=== PATIENT | female | born 1990 ===

== ENCOUNTER 2020-01-21 13:09 | Inpatient (IN) ==
[2020-01-21] MEDS ORDERED: IOPAMIDOL 100 ML BOTTLE IV ONE (13:10)
[2020-01-21] MEDS ORDERED: KETOROLAC 30 MG/ML VIAL IV ONE (13:28)
[2020-01-21] MEDS ORDERED: 0.9 % SODIUM CHLORIDE 2,000 ML IV ONE (13:28)
[2020-01-21] MEDS ORDERED: ONDANSETRON 4 MG/2 ML VIAL IV ONE (13:28)
[2020-01-21 13:47] LABS: POC Blood Urea Nitrogen 13 mg/dl (6-20); POC CO2 24 mmol/L (22-30); POC Calcium, Ionized 1.19 mmol/L (1.16-1.32); POC Chloride 102 mmol/L (96-108); POC Creatinine 0.6 mg/dl (0.6-1.1); POC Glucose, Random 167 mg/dL (70-105); POC Potassium 3.4 mmol/L (3.3-5.1); POC Sodium 135 mmol/L (133-145)
[2020-01-21] MEDS: HYDROmorphone 2 MG/ML VIAL IV PRN ×3 (13:55→17:07)
[2020-01-21 14:27] LABS: Basophils # (Auto) 0.06 K/mcL (0.00-0.30); Basophils % (Auto) 0.2 % (0.0-2.0); Eosinophils # (Auto) 0.05 K/mcL (0.00-0.70); Eosinophils % (Auto) 0.2 % (0.0-7.0); Granulocytes % (Auto) 90.3 % (38.0-78.0); Hematocrit 33.8 % (34.1-44.9); Hemoglobin 11.6 g/dL (11.2-15.7); Lymphocytes # (Auto) 1.45 K/mcL (1.50-4.80); Mean Cell Volume 86.2 fL (80.0-100.0); Mean Corpuscular HGB Conc 34.3 g/dL (31.0-36.0); Mean Platelet Volume 10.5 fL (7.4-10.4); Monocytes # (Auto) 0.79 K/mcL (0.10-0.90); Monocytes % (Auto) 3.3 % (1.0-12.0); Platelet Count 358 K/mcL (140-440); RBC 3.92 M/mcL (3.59-5.38); Red Cell Distribution Width 13.2 % (11.5-14.5); WBC 24.1 K/mcL (4.50-11.00)
[2020-01-21] MEDS ORDERED: metroNIDAZOLE 500 MG/100 ML BAG IV ONE (14:31)
[2020-01-21] MEDS ORDERED: CIPROFLOXACIN 400 MG/200 ML BAG IV ONE (14:31)
--- NOTE | 2020-01-21 14:34 | Emergency Department Note ---
Abdominal Pain HPI - General Chief Complaint: Abdominal Pain Stated Complaint: Lower abdominal pain, low back pain, neck pain Time Seen by Provider: 01/21/20 13:14 Source: patient Mode of arrival: ambulatory Limitations: no limitations - History of Present Illness HPI Narrative: 29-year-old female with left lower quadrant abdominal pain over the last couple days. It was severe would not let her sleep last night. She is appear visiting from [place]. No previous belly surgeries except for tubal ligation. Pain radiates to her back. She did have a fever up to 103 last night. Normal bowel movement today without hematochezia or melena. Denies any trouble urinating. No shortness of breath but she does have pain when she takes a deep breath - Related Data Previous Rx's Medication Instructions Recorded Fluticasone Propionate [Flonase] 2 spray NS DAILY #1 spray.tomás 10/17/15 Allergies Allergy/AdvReac Type Severity Reaction Status Date / Time No Known Drug Allergies Allergy Verified 01/21/20 13:13 Review of Systems All systems ED: reviewed and negative except as stated. Abdominal Pain PMH - Past Medical History Attestation: Yes: The following information was validated with the patient. Medical history: Reports: no medical history Surgical history ED: Reports: orthopedic, other (elbow left), tubal ligation - Social History Smoking status: Current every day smoker Physical Exam Some distress secondary to belly pain. Normocephalic atraumatic. Conjunctive are clear sclerae white nonicteric. No nasal discharge or congestion. Oropharynx pink and moist. She does have multiple missing teeth. Neck is supple without lymphadenopathy or thyromegaly. Heart is regular rate and rhythm no murmur appreciated. Lungs clear to auscultation bilaterally without wheezes rales rhonchi or respiratory distress. Abdomen is soft diffusely tender but no distention. She is guarding some. Tenderness is worse in the left lower quadrant. No pedal edema. Alert oriented able to answer questions appropriate I did do a pelvic exam with cultures. She has copious vaginal discharge but I do not see any purulence or evidence of trauma. No chandelier sign or significant pain with my exam. Normal mons pubis and rugous vaginal wall Limitations: no limitations Course Vital Signs Temperature 98.2 F 01/21/20 13:10 Pulse Rate 122 H 01/21/20 13:10 Respiratory Rate 16 01/21/20 13:10 Blood Pressure 115/71 01/21/20 13:10 Pulse Oximetry (%) 97 01/21/20 13:10 Temperature 98.5 F 01/21/20 20:27 Pulse Rate 95 H 01/21/20 20:46 Respiratory Rate 16 01/21/20 13:10 Blood Pressure 86/52 01/21/20 20:46 Pulse Oximetry (%) 98 01/21/20 20:46 Abdominal Pain - Lab Data Lab results reviewed: Yes I reviewed the patient's lab results. Result diagrams: 01/21/20 13:36 01/21/20 13:36 Lab Results 01/21/20 01/21/20 01/21/20 Range/Units 13:36 13:36 13:36 WBC 24.1 H (4.50-11.00) K/mcL RBC 3.92 (3.59-5.38) M/mcL Hgb 11.6 (11.2-15.7) g/dL Hct 33.8 L (34.1-44.9) % POC Hct 34.0 L (36.0-48.0) % MCV 86.2 (80.0-100.0) fL MCH 29.6 (26.0-34.0) pg MCHC 34.3 (31.0-36.0) g/dL RDW 13.2 (11.5-14.5) % Plt Count 358 (140-440) K/mcL MPV 10.5 H (7.4-10.4) fL Gran % 90.3 H (38.0-78.0) % Lymph % (Auto) 6.0 L (15.5-49.0) % [place] % (Auto) 3.3 (1.0-12.0) % Eos % (Auto) 0.2 (0.0-7.0) % Baso % (Auto) 0.2 (0.0-2.0) % Gran # 21.75 H (1.80-8.00) K/mcL Lymph # (Auto) 1.45 L (1.50-4.80) K/mcL [place] # (Auto) 0.79 (0.10-0.90) K/mcL Eos # (Auto) 0.05 (0.00-0.70) K/mcL Baso # (Auto) 0.06 (0.00-0.30) K/mcL VBG Lactic Acid 0.9 (0.5-2.0) mmol/L POC Sodium 135 (133-145) mmol/L Sodium 135 (133-145) mmol/L POC Potassium 3.4 (3.3-5.1) mmol/L Potassium 3.4 (3.3-5.1) mmol/L POC Chloride 102 (96-108) mmol/L Chloride 101 (96-108) mmol/L Carbon Dioxide 24 (22-30) mmol/L POC Total CO2 24 (22-30) mmol/L Anion Gap 10.0 (8-16) POC BUN 13 (6-20) mg/dl BUN 13 (6-20) mg/dl Creatinine 0.7 (0.6-1.1) mg/dl POC Creatinine 0.6 (0.6-1.1) mg/dl GFR Calculation 119 Glucose 165 H (70-105) mg/dL POC Glucose 167 H (70-105) mg/dL Calcium 9.6 (8.6-10.4) mg/dl POC WB Ioniz Calcium 1.19 (1.16-1.32) mmol/L Total Bilirubin 0.6 (0.0-1.0) mg/dL AST 11 (0-37) U/l ALT 8 (0-40) U/l Alkaline Phosphatase 68 (39-117) U/L Total Protein 7.1 (5.9-8.4) gm/dL Albumin 4.0 (3.2-5.2) gm/dL Globulin 3.1 (2.2-3.7) gm/dL Albumin/Globulin Ratio 1.3 (1.0-2.3) Lipase 15 (7-60) U/L Urine Color Urine Appearance Urine pH (5.0-9.0) Ur Specific [place] (1.000-1.035) Urine Protein (NEG) mg/dL Urine Glucose (UA) (NEG) mg/dL Urine Ketones (NEG) mg/dL Urine Occult Blood (<0.03) mg/dL Urine Nitrate (NEG) Urine Bilirubin (NEG) mg/dL Urine Urobilinogen (NEG) mg/dL Ur Leukocyte Esterase (NEG) /uL Urine RBC (0-1) /hpf Urine WBC (0-4) /hpf Ur Squamous Epith Cells (0-4) /hpf Ur Transition Epith Cell (0-2) /hpf Urine Bacteria (0) /hpf Urine Mucus (0) /hpf Ur Culture Indicated? 01/21/20 Range/Units 16:20 WBC (4.50-11.00) K/mcL RBC (3.59-5.38) M/mcL Hgb (11.2-15.7) g/dL Hct (34.1-44.9) % POC Hct (36.0-48.0) % MCV (80.0-100.0) fL MCH (26.0-34.0) pg MCHC (31.0-36.0) g/dL RDW (11.5-14.5) % Plt Count (140-440) K/mcL MPV (7.4-10.4) fL Gran % (38.0-78.0) % Lymph % (Auto) (15.5-49.0) % [place] % (Auto) (1.0-12.0) % Eos % (Auto) (0.0-7.0) % Baso % (Auto) (0.0-2.0) % Gran # (1.80-8.00) K/mcL Lymph # (Auto) (1.50-4.80) K/mcL [place] # (Auto) (0.10-0.90) K/mcL Eos # (Auto) (0.00-0.70) K/mcL Baso # (Auto) (0.00-0.30) K/mcL VBG Lactic Acid (0.5-2.0) mmol/L POC Sodium (133-145) mmol/L Sodium (133-145) mmol/L POC Potassium (3.3-5.1) mmol/L Potassium (3.3-5.1) mmol/L POC Chloride (96-108) mmol/L Chloride (96-108) mmol/L Carbon Dioxide (22-30) mmol/L POC Total CO2 (22-30) mmol/L Anion Gap (8-16) POC BUN (6-20) mg/dl BUN (6-20) mg/dl Creatinine (0.6-1.1) mg/dl POC Creatinine (0.6-1.1) mg/dl GFR Calculation Glucose (70-105) mg/dL POC Glucose (70-105) mg/dL Calcium (8.6-10.4) mg/dl POC WB Ioniz Calcium (1.16-1.32) mmol/L Total Bilirubin (0.0-1.0) mg/dL AST (0-37) U/l ALT (0-40) U/l Alkaline Phosphatase (39-117) U/L Total Protein (5.9-8.4) gm/dL Albumin (3.2-5.2) gm/dL Globulin (2.2-3.7) gm/dL Albumin/Globulin Ratio (1.0-2.3) Lipase (7-60) U/L Urine Color Yellow Urine Appearance Cloudy Urine pH 6.0 (5.0-9.0) Ur Specific [place] 1.054 H (1.000-1.035) Urine Protein Neg (NEG) mg/dL Urine Glucose (UA) Negative (NEG) mg/dL Urine Ketones Neg (NEG) mg/dL Urine Occult Blood Neg (<0.03) mg/dL Urine Nitrate Neg (NEG) Urine Bilirubin Neg (NEG) mg/dL Urine Urobilinogen 2.0 A (NEG) mg/dL Ur Leukocyte Esterase 500 A (NEG) /uL Urine RBC 11 H (0-1) /hpf Urine WBC 111 H (0-4) /hpf Ur Squamous Epith Cells 18 H (0-4) /hpf Ur Transition Epith Cell < 1 (0-2) /hpf Urine Bacteria 0 (0) /hpf Urine Mucus Few (0) /hpf Ur Culture Indicated? No - Radiology Data Radiology results reviewed: Yes I reviewed the patient's radiology results. CT scan of the abdomen pelvis shows uterus suspicious for mass so ultrasound is ordered. Ultrasound shows normal uterus and ovaries/adnexa. G-tube was inserted for grossly distended stomach with return to good fluid. Abdominal x-ray series for placement notes that she indeed has a very distended stomach Disposition Pt seen by MANAGER PROGRAMS/PA only: No Clinical Impression: Gastric distention Sepsis Qualifiers: Sepsis type: sepsis due to unspecified organism Sepsis acute organ dysfunction status: unspecified Qualified Code(s): A41.9 - Sepsis, unspecified organism Summary: Suspect diverticulitis versus ectopic versus other adnexal female organ issue such as PID. Other possibilities include abscess or other complication of diverticulitis. Start pain medicine, Zofran and IV fluids. CT the abdomen and pelvis with contrast as well as laboratory ordered. Elevated white count is very concerning so we will get blood cultures and start antibiotics with metronidazole and ciprofloxacin IV. CT was concerning so ultrasound was ordered. Ultrasound however did not show anything concerning. We did not start an NG tube because her stomach was markedly distended-this did help and she was more comfortable I discussed the case with Dr. Lange, general surgeon. He consulted on the patient and reviewed all of her information as well as evaluated the patient himself. He felt the patient's presentation was most likely pelvic inflammatory disease and recommended antibiotic treatment with follow-up with [employer]. Please see his consult note for full details I then discussed the case with Dr. Rich [employer] TE[employer] MEMBER on-call. She shared my concern about the patient being ill with some kind of bacterial illness and possibly even septic with her low blood pressure. Urinalysis was not a clean catch. I did order an hCG as well but this was not back at the time I talked with her. Dr. Rich advised me admit the patient to the hospitalist and that she would con sult on the patient after she was done with the delivery over at [facility]. I did read her the results of her pelvic ultrasound and CT scan of the abdomen pelvis over the phone. My pelvic exam was not consistent with PID but to cover for the possibility we added Rocephin in addition to previously given antibiotic I then discussed the case with Dr. Novak, our hospitalist. He agreed to accep t the patient for further care and evaluation. I ordered more IV fluid Disposition: Xfer As Inpt ([facility]) Condition: Fair Referrals: Scott Garcia MD [Primary Care Provider] - Stephen Lange MD [Physician] - Lydia Rich MD [Physician] -
[2020-01-21 14:52] LABS: ALT/SGPT 8 U/l (0-40); AST/SGOT 11 U/l (0-37); Albumin/Globulin Ratio 1.3 (1.0-2.3); Alkaline Phosphatase 68 U/L (39-117); Bilirubin,Total 0.6 mg/dL (0.0-1.0); Blood Urea Nitrogen 13 mg/dl (6-20); Calcium 9.6 mg/dl (8.6-10.4); Carbon Dioxide 24 mmol/L (22-30); Chloride 101 mmol/L (96-108); Globulin 3.1 gm/dL (2.2-3.7); Glomerular Filtration Rate 119; Glucose 165 mg/dL (70-105)
--- NOTE | 2020-01-21 15:33 | Cat Scan Report ---
CLINICAL INFORMATION: Lower abdominal pain COMPARISON: Previous pelvic ultrasound dated 11/10/2012 TECHNIQUE: Axial images were obtained through the abdomen and pelvis. Sagittally and coronally reformatted images. 60 mL Isovue 370 injected intravenously. Oral contrast material was given FINDINGS: Lung bases:Lung bases are negative. No parenchymal infiltrate or mass. No pleural fluid. No pericardial fluid Liver:Negative. No focal mass. Liver contour is smooth. There is mild fat deposition near the fissure for the ligamentum venosum Gallbladder, billary:No calcified gallstones. No dilated bile ducts Spleen:Borderline splenomegaly. Spleen measures 12.9 cm maximally. Normal enhancement splenic and portal veins Pancreas:Negative Adrenal glands:Negative Kidneys, ureters, bladder:Kidneys are negative. No solid or cystic mass. There is no hydronephrosis. There is no hydroureter. There is no contrast material within the bladder. There are no bladder calculi Gastrointestinal:Stomach is somewhat distended and filled with contrast material and food. There is no mechanical small bowel obstruction. Colon is negative. No diverticulitis. Appendix is negative Vascular:Abdominal aorta is normal. No abdominal aortic aneurysm. No calcified plaque Lymphatic:Negative. No retroperitoneal or mesenteric adenopathy Mesentery, peritoneum:No free intraperitoneal fluid. No pneumoperitoneum. No intra-abdominal abscess Reproductive:Uterus is retroflexed. Uterus is enlarged. Uterus measures approximately 10.2 x 7.4 x 8.0 cm. It is difficult to accurately compare with an ultrasound but uterus appears larger. Also of note that the uterus was previously anteflexed. Endometrium is not well visualized. Findings may be secondary to a very large fibroid. Malignancy would be unusual in this 29-year-old patient but is not excluded. Pelvic ultrasound recommended for further evaluation Musculoskeletal:Normal lumbar vertebral body heights. No compression deformities. Sacrum and pelvis are negative. Hips are negative. IMPRESSION: 1. Enlarged and retroflexed uterus. Uterine mass is possible. This may be a benign fibroid although malignancy is not excluded. Pelvic ultrasound is recommended. 2. No other abnormality The exam was performed using radiation dose optimization techniques including, but not limited to, automated exposure control, adjustment of the mA and/or kV according to patient size and use of iterative reconstruction technique. Interpreted and Authenticated by: Alton Brown 01/21/20
--- NOTE | 2020-01-21 15:48 | XRay Report ---
CLINICAL INFORMATION: Nasogastric tube placement TECHNIQUE: AP supine abdomen COMPARISON: CT scan dated 01/21/2020 FINDINGS: There is gastric distention of the stomach. There is an esophagogastric tube in the proximal stomach. The sidehole of the catheter is at approximately the esophagogastric junction and should be advanced. IMPRESSION: 1. Esophagogastric tube in the proximal stomach 2. Recommend advancement as above Interpreted and Authenticated by: Alton Brown 01/21/20
--- NOTE | 2020-01-21 17:13 | Ultrasound Report ---
CLINICAL INFORMATION: Pelvic pain. Previous CT scan demonstrated probable uterine enlargement TECHNIQUE: Transabdominal and endovaginal pelvic ultrasound. Grayscale and color flow Doppler spectral imaging COMPARISON: CT scan dated 01/21/2020. Previous pelvic ultrasound dated 11/10/2012 FINDINGS: Uterus: The uterus was previously anteflexed. Uterus is now retroflexed. Uterus measures 9.5 x 5.8 x 6.5 cm. This is within normal limits. Uterus appeared larger on the CT scan. This is probably secondary to prominent pelvic blood vessels and lack of fat. There is no myometrial mass. Endometrium:Endometrium measures 4 mm. There is minimal endometrial fluid. No endometrial mass Right Ovary:Right ovary measures 4.7 x 2.4 x 3.2 cm. No solid or cystic mass. Left Ovary:Left ovary measures 4.3 x 2.6 x 2.5 cm. No solid or cystic mass. Cul de sac: No free fluid within the pelvic cul-de-sac. IMPRESSION: 1. Retroflexed uterus. No uterine mass as suspected on CT scan. 2. Negative pelvic ultrasound Interpreted and Authenticated by: Alton Brown 01/21/20
[2020-01-21 17:38] LABS: Appearance,Urine CLOUDY; Bacteria,Urine 0 /hpf (0); Bilirubin,Urine NEG (NEG); Color,Urine YELLOW; Culture Indicated,Urine NO; Glucose,Urine (UA) NEGATIVE (NEG); Ketones,Urine NEG (NEG); Leukocyte Esterase,Urine 500 /uL (NEG); Mucus,Urine FEW /hpf (0); Nitrate,Urine NEG (NEG); Protein,Urine NEG (NEG); Specific Gravity,Urine 1.054 (1.000-1.035); Urine Blood NEG mg/dL (<0.03); Urine RBC 11 /hpf (0-1); Urine Squamous Epithelial Cell 18 /hpf (0-4); Urine Transitional Epi Cells < 1 /hpf (0-2); Urine WBC 111 /hpf (0-4)
--- NOTE | 2020-01-21 19:09 | General Surgery Consult Note ---
History of Present Illness Patient information: Note initiated : 01/21/20 at 7:01 pm Service Date, if different from initiated Date: [] Patient: Herminio Rodriguez 29 y/o F admitted on for Lower Abdominal Pain, Low Back Pain, Neck Pain. Chief Complaint: [] Consult date: 01/21/20 Reason for consult: other (possible pelvic mass) Requesting physician: Jace Fajardo History of present illness: 29 yo F with 2 day history of myalgia, and lower abdominal pain,with abnormal menses earlier this month. She had her period then another period of vaginal bleeding shorly there after. it was not particularly painful at that time though she does occasionally c/o dysmenorrhea. She has had normal BM's and does not c/o constipation issues. She has normal daily BM's. She was seen in ED and c/o fever and malaise. CT showed Enlarged uterus but Pelvic U/S did not confirm this. She does appear to have a pelvic mass c/w abscess but it is not well defined by my reading. She sander other associated GI symptoms and has been eating normally. Review of Systems - Constitutional fever(s), malaise, no anorexia, no chills, no fatigue, no headache(s), no weight gain, no weight loss - EENT Nose, mouth and throat: as per HPI - Breasts other (Not examined) - Cardiovascular no chest pain, no chest pain with activity, no claudication, no diaphoresis, no dyspnea, no dyspnea on exertion, no irregular heart rhythm, no orthopnea, no palpatations - Respiratory other (Cigarette smoker), no cough, no dyspnea, no hemoptysis, no dyspnea on exertion - Gastrointestinal abdominal pain, no bloating, no change in bowel habits, no change in stool character, no constipation, no cramping, no diarrhea, no fecal incontinence, no hematochezia, no loose stools - Genitourinary Genitourinary: abnormal meses, abnormal vaginal bleeding, dysmenorrhea (Occasional Dysmenorrhea but not severe), no vaginal discharge, no vaginal ordor, no vaginal pruritis - Musculoskeletal back pain, myalgias - Neurological no confusion, no convulsions, no dizziness, no focal weakness, no frequent fal ls, no headache(s) - Psychiatric no anxiety, no behavioral changes, no change in appetite - Endocrine no change in body appearance, no cold intolerance, no excessive sweating, no fatigue - Hematologic/Lymphatic no easy bleeding, no easy bruising, no lymphadenopathy Past History Past medical history: Patient and recently moved here from [place] old records not available Nosignificant past medical problems MEDs include allergy meds and anti-histamines only Past surgical history: no abdominal surgery NVD x3 oldest child is 9 youngest is 5yo Past family history: no family history of Diverticulitis or significant GI issues Past social history: Smokes 1/2 to 1 ppd cigarettes is present at bedside. Medications and Allergies Home Medications Medication Instructions Recorded Confirmed Type Fluticasone Propionate [Flonase] 2 spray NS DAILY #1 spray.tomás 10/17/15 01/21/20 Rx Allergies Allergy/AdvReac Type Severity Reaction Status Date / Time No Known Drug Allergies Allergy Verified 01/21/20 13:13 Exam Temp Pulse Resp BP Pulse Ox 98.2 F 93 H 16 97/50 98 01/21/20 13:10 01/21/20 18:46 01/21/20 13:10 01/21/20 18:46 01/21/20 18:46 - General physical appearance well nourished, moderate distress. negative: chronically ill, obese - Eyes PERRL, normal ocular movement, deviation. negative: icteric - ENT poor fci - Head Head exam IM: Present: atraumatic, normal inspection, normocephalic - Neck trachea midline, no lymphadenopathy. negative: no masses, no bruits - Cardiovascular Cardiovascular exam IM: Present: normal rate and rhythm - Respiratory normal expansion, normal respiratory effort, clear to percussion, clear to auscultation - Abdomen Abdomen: Present: soft, non tender, bowel sounds. Absent: surgical scars, guarding, rebound - Genitourinary Present: normal external genitalia, other (Pelvic exam not done) - Integumentary Present: other (Multiple tatoos and body piercings). Absent: no rash - Neurologic Present: normal coordination, normal sensation. Absent: disoriented - Psychiatric Present: oriented to time, oriented to person, oriented to place, speech is normal Results - Labs 01/21/20 13:36 01/21/20 13:36 Abnormal lab results 01/21/20 01/21/20 01/21/20 Range/Units 13:36 13:36 16:20 WBC 24.1 H (4.50-11.00) K/mcL Hct 33.8 L (34.1-44.9) % POC Hct 34.0 L (36.0-48.0) % MPV 10.5 H (7.4-10.4) fL Gran % 90.3 H (38.0-78.0) % Lymph % (Auto) 6.0 L (15.5-49.0) % Gran # 21.75 H (1.80-8.00) K/mcL Lymph # (Auto) 1.45 L (1.50-4.80) K/mcL Glucose 165 H (70-105) mg/dL POC Glucose 167 H (70-105) mg/dL Ur Specific [place] 1.054 H (1.000-1.035) Urine Urobilinogen 2.0 A (NEG) mg/dL Ur Leukocyte Esterase 500 A (NEG) /uL Urine RBC 11 H (0-1) /hpf Urine WBC 111 H (0-4) /hpf Ur Squamous Epith Cells 18 H (0-4) /hpf Diabetes panel 01/21/20 Range/Units 13:36 Sodium 135 (133-145) mmol/L Potassium 3.4 (3.3-5.1) mmol/L Chloride 101 (96-108) mmol/L Carbon Dioxide 24 (22-30) mmol/L BUN 13 (6-20) mg/dl Creatinine 0.7 (0.6-1.1) mg/dl Glucose 165 H (70-105) mg/dL Calcium 9.6 (8.6-10.4) mg/dl AST 11 (0-37) U/l ALT 8 (0-40) U/l Alkaline Phosphatase 68 (39-117) U/L Total Protein 7.1 (5.9-8.4) gm/dL Albumin 4.0 (3.2-5.2) gm/dL Calcium panel 01/21/20 Range/Units 13:36 Calcium 9.6 (8.6-10.4) mg/dl Albumin 4.0 (3.2-5.2) gm/dL Pituitary panel 01/21/20 Range/Units 13:36 Sodium 135 (133-145) mmol/L Potassium 3.4 (3.3-5.1) mmol/L Chloride 101 (96-108) mmol/L Carbon Dioxide 24 (22-30) mmol/L BUN 13 (6-20) mg/dl Creatinine 0.7 (0.6-1.1) mg/dl Glucose 165 H (70-105) mg/dL Calcium 9.6 (8.6-10.4) mg/dl Adrenal panel 01/21/20 Range/Units 13:36 Sodium 135 (133-145) mmol/L Potassium 3.4 (3.3-5.1) mmol/L Chloride 101 (96-108) mmol/L Carbon Dioxide 24 (22-30) mmol/L BUN 13 (6-20) mg/dl Creatinine 0.7 (0.6-1.1) mg/dl Glucose 165 H (70-105) mg/dL Calcium 9.6 (8.6-10.4) mg/dl Total Bilirubin 0.6 (0.0-1.0) mg/dL AST 11 (0-37) U/l ALT 8 (0-40) U/l Alkaline Phosphatase 68 (39-117) U/L Total Protein 7.1 (5.9-8.4) gm/dL Albumin 4.0 (3.2-5.2) gm/dL All other labs normal. - Imaging Abdominal x-ray: report reviewed, image reviewed CT scan - abdomen: report reviewed, image reviewed US - pelvic: report reviewed, image reviewed Assessment and Plan (1) Pelvic mass in female Status: Acute Priority: Medium (2) Pelvic abscess in female Status: Acute Comment: Probably represents PID as Diverticulitis unlikely with normal daily BM's and no GI symptoms. Gastric distension is probably incidental and there is no small bowel ileus. Treatment and follow up discussed with Dr. Fajardo in ED Total time spen in consultation with patient examining records reviewing Imaging and in discussion with ED attending physician >75 min
[2020-01-21] MEDS ORDERED: cefTRIAXone 1 GM VIAL IV ONE (19:53)
[2020-01-21] MEDS ORDERED: 0.9 % SODIUM CHLORIDE 1,000 ML IV ONE (20:53)
--- NOTE | 2020-01-21 21:53 | Internal Med History&Physical ---
Medical - H&P: HPI Patient information: Note initiated : 01/21/20 at 9:51 pm Service Date, if different from initiated Date: [] Patient: Herminio Rodriguez 29 y/o F admitted on for Lower Abdominal Pain, Low Back Pain, Neck Pain. Chief Complaint: [] History of present illness: Ms. Rodriguez is a 29 year old F 29-year-old female presents to the ED with lower abdominal. Unable to sleep last night because of it. No previous abdominal surgeries except for tubal ligation. Reported fever last night of 103. She had normal bowel movements. She says the pain started last night and that she woke up fine yesterday. The pain is crampy in both lower quadrants and radiates around to the back. She reports hot flashes. She says she had "2 periods this month which is unusual". Patient denies any similar circumstances. CT abdomen pelvis showed large uterus and possible pelvic mass however this was not apparent on transvaginal ultrasound. Imaging did show some gastric distention but no ileus or obstruction. Surgeon evaluate the patient felt it was more likely related to PID as opposed to diverticulitis or some other abdominal pathology. Case was also discussed with Dr. Rich who came and examined the patient. Patient will be admitted for sepsis, ?suspected PID. test negative Review of Systems: Pertinent positives as above. Denies headache/nausea/vomiting/chest p ain/cough/dyspnea/diarrhea. Remaining 10 point review of system reviewed negative. Medical - H&P: PMH Medical history: Past medical history: None Past surgical history: Left elbow surgery Tubal ligation Family: Mother had COPD Father heart disease Social history: 1 PPD Denies alcohol use Use marijuana Lives with family Medical - H&P: Meds Home Medications Medication Instructions Recorded Confirmed Type Fluticasone Propionate [Flonase] 2 spray NS DAILY #1 spray.tomás 10/17/15 01/21/20 Rx Allergies Allergy/AdvReac Type Severity Reaction Status Date / Time No Known Drug Allergies Allergy Verified 01/21/20 13:13 Medical - H&P: Exam - Constitutional Vitals: Temp Pulse Resp BP Pulse Ox 98.5 F 102 H 16 92/59 99 01/21/20 20:27 01/21/20 21:50 01/21/20 13:10 01/21/20 21:50 01/21/20 21:50 Exam: General: Alert, Awake, No acute Distress Eyes/N/T: EOMI, PERRL, Head/Neck: neck supple, normocephalic atraumatic CV: Tachycardia but regular, No murmurs, normal s1/s2 Pulm: Clear b/l, no wheezing/rhonchi/rales Abd: soft, Tender generalized but greater lower quads and more so on left, +BS x4 Ext: no clubbing/cyanosis/edema Neuro: Alert, no focal deficits, moves all extremities, CN 2-12 grossly intact, symmetrical strength b/l upper/lower, sensations intact b/l upper/lower Skin: warm/dry Medical - H&P: Reslt - Labs CBC & Chem 7: 01/21/20 13:36 01/21/20 13:36 Labs: Short CBC 01/21/20 Range/Units 13:36 WBC 24.1 H (4.50-11.00) K/mcL Hgb 11.6 (11.2-15.7) g/dL Hct 33.8 L (34.1-44.9) % Plt Count 358 (140-440) K/mcL BMP 01/21/20 13:36 Sodium 135 Potassium 3.4 Chloride 101 Carbon Dioxide 24 BUN 13 Creatinine 0.7 Glucose 165 H Calcium 9.6 Liver Function 01/21/20 Range/Units 13:36 Total Bilirubin 0.6 (0.0-1.0) mg/dL AST 11 (0-37) U/l ALT 8 (0-40) U/l Alkaline Phosphatase 68 (39-117) U/L Albumin 4.0 (3.2-5.2) gm/dL Urine 01/21/20 Range/Units 16:20 Urine Color Yellow Urine Appearance Cloudy Urine pH 6.0 (5.0-9.0) Ur Specific [place] 1.054 H (1.000-1.035) Urine Protein Neg (NEG) mg/dL Urine Glucose (UA) Negative (NEG) mg/dL Medical - H&P: A/P - Narrative A/P Narrative: A: *Lower abdominal pain, suspect PID: -CT no obvious source, distended stomach no bowel obstruction *Sepsis w/hypotension responsive to IVF's *?UTI: *Tobacco abuse * P: -zosyn/Doxy -pending BC, vaginal exam C&S -repeat UA -pain control -IVF -Dr. Rich consulted - -Smoking cessation counseling -ppx: lovenox
[2020-01-21] MEDS ORDERED: LORazepam 2 MG/ML VIAL IV ONE (22:34)
[2020-01-21] MEDS ORDERED: ONDANSETRON 4 MG/2 ML VIAL IV PRN (23:33)
[2020-01-21] MEDS ORDERED: POTASSIUM CHLORIDE 20 MEQ TABLET PO PRN ×2 (23:33)
[2020-01-21] MEDS ORDERED: POTASSIUM CHLORIDE 40 MEQ in DEXTROSE 5% IN WATER 500 ML IV PRN (23:33)
[2020-01-21] MEDS ORDERED: SENNOSIDES 1 TABLET PO PRN (23:33)
[2020-01-21] MEDS ORDERED: MAGNESIUM SULFATE 2 GM/50 ML BAG IV PRN (23:33)
[2020-01-21] MEDS ORDERED: ACETAMINOPHEN 325 MG TABLET PO PRN (23:33)
[2020-01-21] MEDS ORDERED: POLYETHYLENE GLYCOL 3350 17 GM PACKET PO PRN (23:33)
[2020-01-21] MEDS: 0.9 % SODIUM CHLORIDE 1,000 ML IV SCH (23:50)
[2020-01-22 00:26] LABS: Amphetamine Screen,Urine SUSPECT POSITIVE (NONDETECTED); Barbiturate Screen,Urine NONE DETECTED (NONDETECTED); Benzodiazepines Screen,Urine NONE DETECTED (NONDETECTED); Cannabinoid Screen,Urine NONE DETECTED (NONDETECTED); Cocaine Screen,Urine NONE DETECTED (NONDETECTED); Opiate Screen,Urine NONE DETECTED (NONDETECTED); Oxycodone, Urine Screen NONE DETECTED (NONDETECTED); Phencyclidine Screen,Urine NONE DETECTED (NONDETECTED)
[2020-01-22] MEDS: DOXYCYCLINE 100 MG in DEXTROSE 5% IN WATER 100 ML IV SCH ×3 (00:30→21:02)
[2020-01-22 01:47] LABS: Lymphocytes % 10 % (15-49); Monocytes % (Manual) 2 % (1-12); Platelet Estimate NORMAL (NORMAL); RBC Morphology NORMAL (NORMAL); Segmented Neutrophils % 88 % (38-78)
[2020-01-22] MEDS: 0.9 % SODIUM CHLORIDE 10 ML SYRINGE IV SCH ×4 (01:58→21:02)
[2020-01-22] MEDS ORDERED: 0.9 % SODIUM CHLORIDE 250 ML IV ONE (02:17)
[2020-01-22] MEDS: PIPERACILLIN SODIUM/TAZOBACTAM 3.375 GM in DEXTROSE 5% IN WATER 50 ML IV SCH ×5 (04:53→23:50)
--- NOTE | 2020-01-22 07:58 | Internal Med Progress Note ---
Medical - PN: Subj Patient information: Note initiated : 01/22/20 at 7:53 am Service Date, if different from initiated Date: [] Patient: Herminio Rodriguez 29 y/o F admitted on 01/21/20 for Lower Abdominal Pain, Low Back Pain, Neck Pain. Chief Complaint: [] Interval history: Ms. Rodriguez is a 29 year old F 29-year-old female presents to the ED with lower abdominal. Unable to sleep last night because of it. No previous abdominal surgeries except for tubal ligation. Reported fever last night of 103. She had normal bowel movements. She says the pain started last night and that she woke up fine yesterday. The pain is crampy in both lower quadrants and radiates around to the back. She reports hot flashes. She says she had "2 periods this month which is unusual". Patient denies any similar circumstances. CT abdomen pelvis showed large uterus and possible pelvic mass however this was not apparent on transvaginal ultrasound. Imaging did show some gastric distention but no ileus or obstruction. Surgeon evaluate the patient felt it was more likely related to PID as opposed to diverticulitis or some other abdominal pathology. Case was also discussed with Dr. Rich who came and examined the patient. Patient will be admitted for sepsis, ?suspected PID vs . Complaint of dysuria test negative 01/22 Patient did get some fluid boluses for low blood pressure last night. Good blood pressure this morning. Patient says she was able to get some sleep. She feels her abdominal pain is improving and does feel better. no Nausea vomiting. UDS shows methamphetamine. When I asked her last time she used she said over a month ago and then I said I would have had to be in sooner given the urine results and had been less than a week and she admitted to yes but denied over the past couple days. Review of Systems: denies headache/fever/chills/nausea/vomiting/chest /cough/dyspnea/diarrhea. Otherwise see above. - Constitutional Vitals: Vital Signs Temp Pulse Resp BP Pulse Ox 98.1 F 89 20 90/52 98 01/22/20 03:33 01/22/20 04:06 01/22/20 04:06 01/22/20 04:01 01/22/20 04:06 Period Temp Pulse Resp BP Sys/[place] Pulse Ox Last 24 Hr 97.7 F-98.5 F 75-122 13-23 85-119/48-89 96-100 Intake and Output 01/21/20 01/22/20 01/22/20 21:59 05:59 13:59 Intake Total 2300 1050 Balance 2300 1050 Weight 53.116 kg Intake & Output: Intake & Output 01/21/20 01/22/20 01/22/20 21:59 05:59 13:59 Intake Total 2300 1050 Balance 2300 1050 Weight 53.116 kg Intake: IV 2300 1050 Sodium Chloride 0.9% 1,000 ml @ 2000 1000 Wide Open IV [facility] Rx#: [id number] Zosyn 3.375 gm In Dextrose 5% 50 in Water 50 ml @ 100 mls/hr IV Q6H [facility] Rx#:[id number] Other: Urine Appearance Fem Cath Clear Urine Color Fem Cath Bright Yellow Exam: General: Alert, Awake, No acute Distress Eyes/N/T: EOMI, , Head/Neck: neck supple, CV: mildly Tachycardia but regular, No murmurs, Pulm: Clear b/l, no wheezing/rhonchi/rales Abd: soft, Tenderness lower quads but much better, +BS x4 Ext: no clubbing/cyanosis/edema Neuro: Alert, no focal deficits, moves all extremities, Skin: warm/dry Medical - PN: Obj Da - Labs CBC & Chem 7: 01/22/20 05:30 01/22/20 05:30 Labs: Abnormal Lab Results 01/21/20 01/21/20 01/21/20 16:20 16:20 13:36 WBC Hct POC Hct 34.0 L MPV Gran % Lymph % (Auto) Gran # Lymph # (Auto) Seg Neutrophils % Lymphocytes % Glucose 165 H POC Glucose 167 H Ur Specific [place] 1.054 H Urine Urobilinogen 2.0 A Ur Leukocyte Esterase 500 A Urine RBC 11 H Urine WBC 111 H Ur Squamous Epith Cells 18 H Ur Amphetamines Screen Suspect positive A 01/21/20 01/21/20 13:36 13:26 WBC 24.1 H Hct 33.8 L POC Hct MPV 10.5 H Gran % 90.3 H Lymph % (Auto) 6.0 L Gran # 21.75 H Lymph # (Auto) 1.45 L Seg Neutrophils % 88 H Lymphocytes % 10 L Glucose POC Glucose Ur Specific [place] Urine Urobilinogen Ur Leukocyte Esterase Urine RBC Urine WBC Ur Squamous Epith Cells Ur Amphetamines Screen Meds: Medications Acetaminophen (Tylenol) 650 mg PO Q6HP PRN PRN Reason: PAIN/FEVER > 101 Docusate Sodium (Colace) 100 mg PO BID [facility] Enoxaparin Sodium (Lovenox) 40 mg SQ DAILY [facility] Potassium Chloride 40 meq/ (Dextrose) 520 mls @ 130 mls/hr IV UD PRN PRN Reason: Potassium < 3 Doxycycline Hyclate 100 mg/ (Dextrose) 100 mls @ 100 mls/hr IV Q12H [facility]; Protocol Last Admin: 01/22/20 00:30 Dose: 100 mls/hr Documented by: Magnesium Sulfate (Magnesium Sulfate) 2 gm in 50 mls @ 50 mls/hr IV UD PRN PRN Reason: Magnesium </= 1.6 Sodium Chloride (Sodium Chloride 0.9%) 1,000 mls @ 100 mls/hr IV .Q10H [facility] Stop: 01/22/20 19:32 Last Admin: 01/21/20 23:50 Dose: 100 mls/hr Documented by: Piperacillin Sod/Tazobactam (Sod 3.375 gm/ Dextrose) 50 mls @ 100 mls/hr IV Q6H [facility]; Protocol Last Admin: 01/22/20 04:53 Dose: 100 mls/hr Documented by: Morphine Sulfate (Morphine) 0 mg IV Q3HP PRN PRN Reason: Pain Ondansetron HCl (Zofran) 4 mg IV Q4HP PRN PRN Reason: Nausea And Vomiting Polyethylene Glycol (Miralax) 17 gm PO DAILYP PRN PRN Reason: Constipation Potassium Chloride (Kdur) 40 meq PO UD PRN PRN Reason: Potssium is 3-3.5 Potassium Chloride (Kdur) 40 meq PO UD PRN PRN Reason: Potassium < 3 Senna (Senokot) 2 tab PO DAILYP PRN PRN Reason: Constipation Sodium Chloride (Saline Flush) 10 ml IV Q8 [facility] Last Admin: 01/22/20 04:54 Dose: Not Given Documented by: Medical - PN: A/P - Time Spent With Patient Total time spent is greater than 50% in coordination of care (as documented) at patient's floor/unit and/or counseling patient: - Narrative A/P Narrative: A: *b/l Lower abdominal pain: ?cystitis vs ?drug related -CT no obvious source, distended stomach no bowel obstruction -vaginal u/s unremarkable -improved today *Sepsis w/hypotension responsive to IVF's: source vs -lactate ok -leukocytosis improving *UTI: *Electrolyte imbalance: Hypocalcemia/hypophosphatemia/hypomagnesemia *Tobacco abuse *Substance abuse: admitted to use today but denies IV use -UDS with amphetamine P: -zosyn/Doxy -pending BC, vaginal exam C&S -pain control -IVF -Dr. Rich evaluated in ED -Slight replacement -Smoking/meth cessation counseling -ppx: lovenox Medical - PN: Qual - VTE Deep Vein Thrombosis/Pulmonary Embolism Present on Admission: No
[2020-01-22 09:21] LABS: Appearance,Urine HAZY; Bacteria,Urine 0 /hpf (0); Bilirubin,Urine NEG (NEG); Color,Urine YELLOW; Culture Indicated,Urine NO; Glucose,Urine (UA) NEGATIVE (NEG); Ketones,Urine 5/TR mg/dL (NEG); Leukocyte Esterase,Urine 500 /uL (NEG); Mucus,Urine FEW /hpf (0); Nitrate,Urine NEG (NEG); Protein,Urine 30 mg/dL (NEG); Specific Gravity,Urine 1.047 (1.000-1.035); Urine Blood 0.03 mg/dL (<0.03); Urine RBC 52 /hpf (0-1); Urine Squamous Epithelial Cell 15 /hpf (0-4); Urine Transitional Epi Cells < 1 /hpf (0-2); Urine WBC 81 /hpf (0-4)
[2020-01-22 09:31] LABS: ALT/SGPT 6 U/l (0-40); AST/SGOT 9 U/l (0-37); Albumin 2.5 gm/dL (3.2-5.2); Alkaline Phosphatase 63 U/L (39-117); Bilirubin,Direct < 0.2 mg/dL (0.0-0.3); Bilirubin,Total 0.2 mg/dL (0.0-1.0); Blood Urea Nitrogen 9 mg/dl (6-20); Calcium 7.3 mg/dl (8.6-10.4); Carbon Dioxide 23 mmol/L (22-30); Chloride 104 mmol/L (96-108); Globulin 2.5 gm/dL (2.2-3.7); Glomerular Filtration Rate 101; Glucose 124 mg/dL (70-105); Lactate Dehydrogenase 140 U/L (94-250); Phosphorous 2.4 mg/dL (2.7-4.5); Triglycerides 56 mg/dl (<150); Uric Acid 2.2 mg/dL (2.5-8.0)
[2020-01-22 09:32] LABS: Hematocrit 29.4 % (34.1-44.9); Hemoglobin 9.5 g/dL (11.2-15.7); Mean Cell Volume 89.1 fL (80.0-100.0); Mean Corpuscular HGB Conc 32.3 g/dL (31.0-36.0); Mean Platelet Volume 10.4 fL (7.4-10.4); Platelet Count 259 K/mcL (140-440); Red Cell Distribution Width 13.4 % (11.5-14.5); WBC 16.9 K/mcL (4.50-11.00)
[2020-01-22] MEDS ORDERED: CALCIUM GLUCONATE 4.65 MEQ/10 ML VIAL IV ONE (09:58)
[2020-01-22] MEDS ORDERED: PHOSPHORUS 250 MG TABLET PO ONE (09:58)
[2020-01-22] MEDS ORDERED: MAGNESIUM SULFATE 2 GM/50 ML BAG IV ONE (09:59)
[2020-01-22] MEDS: ENOXAPARIN 40 MG/0.4 ML SYRINGE SQ SCH (09:59)
[2020-01-22] MEDS: DOCUSATE SODIUM 100 MG CAPSULE PO SCH ×2 (10:00→21:02)
[2020-01-22 10:07] LABS: Band Neutrophils % 3 % (0-10); Lymphocytes % 11 % (15-49); Monocytes % (Manual) 3 % (1-12); Platelet Estimate NORMAL (NORMAL); RBC Morphology NORMAL (NORMAL); Segmented Neutrophils % 83 % (38-78)
--- NOTE | 2020-01-22 10:19 | OB/GYN Progress Note ---
Assessment and Plan (1) Sepsis Status: Suspected Qualifiers: Sepsis type: sepsis due to unspecified organism Sepsis acute organ dysfunction status: unspecified Qualified Code(s): A41.9 - Sepsis, unspecified organism (2) Gastric distention Status: Acute - Narrative A/P Narrative: PID?/pyuria also noted. Blood cultures pending. Hypotension remains, groggy affect related (vs coming down from amphetamine high?) Decreasing leukocytosis. Remains afebrile. Continue antibiotics as ordered. Subjective - Subjective Patient information: Note initiated : 01/22/20 at 10:17 am Service Date, if different from initiated Date: [] Patient: Herminio Rodriguez 29 y/o F admitted on 01/21/20 for Lower Abdominal Pain, Low Back Pain, Neck Pain. Chief Complaint: [] States is feeling better. Is hungry. Very groggy and falls back to sleep readily. Has not had dilaudid since midnight. Has been hypotensive throughout the night and therefore analgesic has been withheld. This am she admitted to staff that she uses amphetamines (denied to me last noc). Objective - Vital Signs Latest vital signs: Vital Signs Temp Pulse Pulse Resp BP BP Pulse Ox 01/22/20 08:01 16 87/46 01/22/20 07:46 14 92/52 01/22/20 07:31 89 17 99/68 99 01/22/20 07:16 86 15 86/58 98 01/22/20 07:01 83 14 92/50 98 01/22/20 06:46 85 16 94/55 99 01/22/20 06:31 75 14 89/54 98 01/22/20 06:18 79 16 98/64 97 01/22/20 06:16 83 13 84/49 97 01/22/20 06:01 79 15 96/64 98 01/22/20 05:46 75 14 94/61 98 01/22/20 05:31 74 18 90/53 98 01/22/20 05:16 80 15 94/52 100 01/22/20 05:01 87 17 92/54 98 01/22/20 04:46 88 19 98/58 98 01/22/20 04:31 89 17 93/60 97 01/22/20 04:16 90 19 93/52 98 01/22/20 04:06 89 20 98 01/22/20 04:01 87 19 90/52 99 01/22/20 03:47 90 17 89/61 99 01/22/20 03:46 84 18 88/50 99 01/22/20 03:33 98.1 F 83 16 89/61 99 01/22/20 03:31 77 13 95/63 99 01/22/20 03:19 80 16 93/59 100 01/22/20 03:16 79 16 88/56 100 01/22/20 03:01 80 18 89/58 100 01/22/20 02:46 84 18 90/52 100 01/22/20 02:31 85 17 89/53 99 01/22/20 02:16 75 15 92/56 100 01/22/20 02:10 82 15 94/59 100 01/22/20 02:03 81 16 87/52 100 01/22/20 02:01 81 17 89/48 100 01/22/20 01:46 93 H 23 H 91/52 99 01/22/20 01:32 89 17 90/50 98 01/22/20 01:31 89 19 89/50 99 01/22/20 01:16 93 H 19 92/51 98 01/22/20 01:01 91 H 18 91/56 99 01/22/20 00:46 16 109/57 01/22/20 00:31 92 H 18 91/52 98 01/22/20 00:16 93 H 19 92/56 97 01/22/20 00:01 94 H 18 90/60 96 20 23:55 95 H 17 91/60 96 01/21/20 23:46 98 H 18 95/54 97 0220 23:36 97.7 F 101 H 19 100/57 96 0220 23:33 97.7 F 94 H 17 100/57 98 0220 23:16 109 H 97/57 98 0220 23:01 103 H 91/54 97 0220 22:46 93/58 0220 22:31 92/53 0220 22:16 95/57 0220 22:01 91/56 0220 21:50 102 H 92/59 99 0220 21:46 93 H 92/59 98 02/21/20 21:31 91 H 87/51 100 20 21:22 95 H 87/55 99 0220 21:01 92 H 92/51 98 0220 20:46 95 H 86/52 98 0220 20:39 92 H 92/54 99 20 20:31 96 H 92/54 100 20 20:27 98.5 F 01/21/20 20:16 91 H 92/55 99 20 20:14 87 100 20 20:01 95 H 91/53 100 01/21/20 19:58 94 H 85/49 100 20 19:46 88 85/49 100 01/21/20 19:37 92 H 89/54 98 01/21/20 19:31 89 88/56 99 01/21/20 19:16 94 H 95/50 98 01/21/20 19:01 94 H 92/54 98 01/21/20 18:46 93 H 97/50 98 01/21/20 18:31 102 H 96/55 97 01/21/20 18:16 93 H 94/55 98 01/21/20 18:01 99 H 95/50 98 01/21/20 17:46 95 H 92/49 97 20 17:31 99 H 94/59 98 01/21/20 17:16 94 H 98/51 97 01/21/20 17:01 95 H 102/60 98 01/21/20 16:49 89 102/64 99 01/21/20 16:16 103 H 108/67 100 01/21/20 16:15 96 H 100 01/21/20 16:01 99 H 112/69 100 20 15:46 91 H 108/73 100 20 15:31 114 H 119/89 99 01/21/20 15:17 104 H 108/72 100 20 14:51 100/78 01/21/20 13:10 98.2 F 122 H 16 115/71 97 Intake and Output 01/21/20 01/22/20 01/22/20 21:59 05:59 13:59 Intake Total 2300 1150 Output Total 450 Balance 2300 1150 -450 Intake: IV 2300 1150 Sodium Chloride 0.9% 1,000 ml @ 2000 1000 Wide Open IV [facility] Rx#: [id number] Vibramycin 100 mg In Dextrose 5 100 % in Water 100 ml @ 100 mls/hr IV Q12H [facility] Rx#:[id number] Zosyn 3.375 gm In Dextrose 5% 50 in Water 50 ml @ 100 mls/hr IV Q6H [facility] Rx#:[id number] Output: Void Amount 450 Other: Urine Appearance Fem Cath Clear Urine Color Fem Cath Bright Yellow Weight 117 lb 1.6 oz - Exam Abdomen: Present: normal appearance, soft, tenderness Bowel sounds: Present: Present x4 - Labs Labs: Abnormal lab results 01/21/20 01/21/20 01/21/20 Range/Units 13:26 13:36 13:36 WBC 24.1 H (4.50-11.00) K/mcL RBC (3.59-5.38) M/mcL Hgb (11.2-15.7) g/dL Hct 33.8 L (34.1-44.9) % POC Hct 34.0 L (36.0-48.0) % MPV 10.5 H (7.4-10.4) fL Gran % 90.3 H (38.0-78.0) % Lymph % (Auto) 6.0 L (15.5-49.0) % Gran # 21.75 H (1.80-8.00) K/mcL Lymph # (Auto) 1.45 L (1.50-4.80) K/mcL Seg Neutrophils % 88 H (38-78) % Lymphocytes % 10 L (15-49) % Glucose 165 H (70-105) mg/dL POC Glucose 167 H (70-105) mg/dL Uric Acid (2.5-8.0) mg/dL Calcium (8.6-10.4) mg/dl Phosphorus (2.7-4.5) mg/dL Magnesium (1.6-2.5) mg/dL Total Protein (5.9-8.4) gm/dL Albumin (3.2-5.2) gm/dL Ur Specific [place] (1.000-1.035) Urine Protein (NEG) mg/dL Urine Ketones (NEG) mg/dL Urine Occult Blood (<0.03) mg/dL Urine Urobilinogen (NEG) mg/dL Ur Leukocyte Esterase (NEG) /uL Urine RBC (0-1) /hpf Urine WBC (0-4) /hpf Ur Squamous Epith Cells (0-4) /hpf Ur Amphetamines Screen (NONDETECTED) 01/21/20 01/21/20 01/22/20 Range/Units 16:20 16:20 05:30 WBC 16.9 H (4.50-11.00) K/mcL RBC 3.30 L (3.59-5.38) M/mcL Hgb 9.5 L (11.2-15.7) g/dL Hct 29.4 L (34.1-44.9) % POC Hct (36.0-48.0) % MPV (7.4-10.4) fL Gran % (38.0-78.0) % Lymph % (Auto) (15.5-49.0) % Gran # (1.80-8.00) K/mcL Lymph # (Auto) (1.50-4.80) K/mcL Seg Neutrophils % 83 H (38-78) % Lymphocytes % 11 L (15-49) % Glucose (70-105) mg/dL POC Glucose (70-105) mg/dL Uric Acid (2.5-8.0) mg/dL Calcium (8.6-10.4) mg/dl Phosphorus (2.7-4.5) mg/dL Magnesium (1.6-2.5) mg/dL Total Protein (5.9-8.4) gm/dL Albumin (3.2-5.2) gm/dL Ur Specific [place] 1.054 H (1.000-1.035) Urine Protein (NEG) mg/dL Urine Ketones (NEG) mg/dL Urine Occult Blood (<0.03) mg/dL Urine Urobilinogen 2.0 A (NEG) mg/dL Ur Leukocyte Esterase 500 A (NEG) /uL Urine RBC 11 H (0-1) /hpf Urine WBC 111 H (0-4) /hpf Ur Squamous Epith Cells 18 H (0-4) /hpf Ur Amphetamines Screen Suspect positive A (NONDETECTED) 01/22/20 01/22/20 Range/Units 05:30 07:50 WBC (4.50-11.00) K/mcL RBC (3.59-5.38) M/mcL Hgb (11.2-15.7) g/dL Hct (34.1-44.9) % POC Hct (36.0-48.0) % MPV (7.4-10.4) fL Gran % (38.0-78.0) % Lymph % (Auto) (15.5-49.0) % Gran # (1.80-8.00) K/mcL Lymph # (Auto) (1.50-4.80) K/mcL Seg Neutrophils % (38-78) % Lymphocytes % (15-49) % Glucose 124 H (70-105) mg/dL POC Glucose (70-105) mg/dL Uric Acid 2.2 L (2.5-8.0) mg/dL Calcium 7.3 L (8.6-10.4) mg/dl Phosphorus 2.4 L (2.7-4.5) mg/dL Magnesium 1.5 L (1.6-2.5) mg/dL Total Protein 5.0 L (5.9-8.4) gm/dL Albumin 2.5 L (3.2-5.2) gm/dL Ur Specific [place] 1.047 H (1.000-1.035) Urine Protein 30 A (NEG) mg/dL Urine Ketones 5/tr A (NEG) mg/dL Urine Occult Blood 0.03 A (<0.03) mg/dL Urine Urobilinogen 2.0 A (NEG) mg/dL Ur Leukocyte Esterase 500 A (NEG) /uL Urine RBC 52 H (0-1) /hpf Urine WBC 81 H (0-4) /hpf Ur Squamous Epith Cells 15 H (0-4) /hpf Ur Amphetamines Screen (NONDETECTED)
[2020-01-22] MEDS ORDERED: CALCIUM GLUCONATE 9.3 MEQ in DEXTROSE 5% IN WATER 50 ML IV ONE (10:30)
[2020-01-22] MEDS: 0.9 % SODIUM CHLORIDE 1,000 ML IV SCH (13:44)
[2020-01-22] MEDS ORDERED: VANCOMYCIN PER PHARMACY IV ONE (21:40)
[2020-01-22] MEDS: VANCOMYCIN 1,000 MG in 0.9 % SODIUM CHLORIDE 250 ML IV SCH (22:30)
[2020-01-23] MEDS: PIPERACILLIN SODIUM/TAZOBACTAM 3.375 GM in DEXTROSE 5% IN WATER 50 ML IV SCH ×3 (05:04→17:32)
[2020-01-23] MEDS: 0.9 % SODIUM CHLORIDE 10 ML SYRINGE IV SCH ×2 (05:43→12:36)
[2020-01-23] MEDS ORDERED: VANCOMYCIN PER PHARMACY IV SCH (07:00)
[2020-01-23 07:42] LABS: Basophils # (Auto) 0.02 K/mcL (0.00-0.30); Basophils % (Auto) 0.3 % (0.0-2.0); Eosinophils % (Auto) 2.7 % (0.0-7.0); Granulocytes % (Auto) 56.6 % (38.0-78.0); Hematocrit 26.7 % (34.1-44.9); Hemoglobin 8.7 g/dL (11.2-15.7); Lymphocytes # (Auto) 2.42 K/mcL (1.50-4.80); Lymphocytes % (Auto) 32.7 % (15.5-49.0); Mean Cell Volume 88.4 fL (80.0-100.0); Mean Corpuscular HGB Conc 32.6 g/dL (31.0-36.0); Mean Platelet Volume 10.6 fL (7.4-10.4); Monocytes # (Auto) 0.57 K/mcL (0.10-0.90); Monocytes % (Auto) 7.7 % (1.0-12.0); Platelet Count 249 K/mcL (140-440); RBC 3.02 M/mcL (3.59-5.38); Red Cell Distribution Width 13.2 % (11.5-14.5); WBC 7.4 K/mcL (4.50-11.00)
--- NOTE | 2020-01-23 07:57 | OB/GYN Progress Note ---
Assessment and Plan (1) Sepsis Sepsis due to Gram +cocci; resolving Anemia P: Per shading painter recommendation. Change in antibiotics noted. Will sign off and be available as needed. Status: Suspected Qualifiers: Sepsis type: sepsis due to unspecified organism Sepsis acute organ dysfunction status: unspecified Qualified Code(s): A41.9 - Sepsis, unspecified organism (2) Gastric distention Status: Acute Subjective - Subjective Patient information: Note initiated : 01/23/20 at 7:55 am Service Date, if different from initiated Date: [] Patient: Herminio Rodriguez 29 y/o F admitted on 01/21/20 for Lower Abdominal Pain, Low Back Pain, Neck Pain. Chief Complaint: [] States she is feeling great, though not quite yet ready to be getting up. Had appetite yesterday. NG removed and tolerated diet. +BM's. Objective - Vital Signs Latest vital signs: Vital Signs Temp Pulse Pulse Resp BP BP Pulse Ox 01/23/20 07:00 62 12 98 01/23/20 04:43 97.2 F 62 14 94/50 98 01/23/20 04:42 84 17 87/47 99 01/23/20 04:05 69 13 89/52 98 01/23/20 04:04 73 17 94/53 98 01/23/20 04:02 68 13 89/49 98 01/23/20 04:01 65 13 85/53 98 01/23/20 00:10 70 98 01/23/20 00:05 97.1 F 66 13 102/50 99 01/22/20 21:01 86 13 96/59 97 01/22/20 20:59 80 15 103/61 97 01/22/20 20:36 84 95 01/22/20 20:31 81 16 92/49 96 01/22/20 20:01 98.3 F 86 18 100/52 100 01/22/20 19:31 82 17 102/55 98 01/22/20 19:01 96 H 20 92/46 98 01/22/20 18:31 88 16 96/58 100 01/22/20 18:01 90 17 104/58 100 01/22/20 16:00 98.5 F 91 H 19 95/55 100 01/22/20 15:00 16 94/54 100 01/22/20 12:11 80 17 100 01/22/20 12:01 98.3 F 15 103/67 100 01/22/20 11:31 88 15 108/71 100 01/22/20 08:01 16 87/46 Intake and Output 01/22/20 01/23/20 01/23/20 21:59 05:59 13:59 Intake Total 901 216 4009 Output Total 750 350 Balance -535 538 8505 Intake: IV 154 990 6537 Sodium Chloride 0.9% 1,000 ml @ 1000 100 mls/hr IV .Q10H [facility] Rx#: [id number] Vibramycin 100 mg In Dextrose 5 100 % in Water 100 ml @ 100 mls/hr IV Q12H [facility] Rx#:[id number] Zosyn 3.375 gm In Dextrose 5% 50 100 in Water 50 ml @ 100 mls/hr IV Q6H [facility] Rx#:[id number] Vancomycin 1,000 mg In Sodium 250 Chloride 0.9% 250 ml @ 250 mls/ hr IV Q12H [facility] Rx#:[id number] Oral 500 50 Output: Void Amount 750 350 # of times incontinent of urine 0 Other: Meal Dinner Urine Appearance Cloudy Clear Urine Color Pale Straw Urine Odor Normal Normal # Voids 0 # Bowel Movements 1 0 Weight 120 lb 9.6 oz - Exam Lungs: bilateral: normal Abdomen: Present: other (slight protuberance but soft, non-tender, +B.S.; no CVAT) - Labs Labs: Abnormal lab results 01/22/20 01/22/20 01/22/20 Range/Units 05:30 05:30 07:50 WBC 16.9 H (4.50-11.00) K/mcL RBC 3.30 L (3.59-5.38) M/mcL Hgb 9.5 L (11.2-15.7) g/dL Hct 29.4 L (34.1-44.9) % MPV (7.4-10.4) fL Seg Neutrophils % 83 H (38-78) % Lymphocytes % 11 L (15-49) % Glucose 124 H (70-105) mg/dL Uric Acid 2.2 L (2.5-8.0) mg/dL Calcium 7.3 L (8.6-10.4) mg/dl Phosphorus 2.4 L (2.7-4.5) mg/dL Magnesium 1.5 L (1.6-2.5) mg/dL Total Protein 5.0 L (5.9-8.4) gm/dL Albumin 2.5 L (3.2-5.2) gm/dL Ur Specific [place] 1.047 H (1.000-1.035) Urine Protein 30 A (NEG) mg/dL Urine Ketones 5/tr A (NEG) mg/dL Urine Occult Blood 0.03 A (<0.03) mg/dL Urine Urobilinogen 2.0 A (NEG) mg/dL Ur Leukocyte Esterase 500 A (NEG) /uL Urine RBC 52 H (0-1) /hpf Urine WBC 81 H (0-4) /hpf Ur Squamous Epith Cells 15 H (0-4) /hpf 01/23/20 Range/Units 05:40 WBC (4.50-11.00) K/mcL RBC 3.02 L (3.59-5.38) M/mcL Hgb 8.7 L (11.2-15.7) g/dL Hct 26.7 L (34.1-44.9) % MPV 10.6 H (7.4-10.4) fL Seg Neutrophils % (38-78) % Lymphocytes % (15-49) % Glucose (70-105) mg/dL Uric Acid (2.5-8.0) mg/dL Calcium (8.6-10.4) mg/dl Phosphorus (2.7-4.5) mg/dL Magnesium (1.6-2.5) mg/dL Total Protein (5.9-8.4) gm/dL Albumin (3.2-5.2) gm/dL Ur Specific [place] (1.000-1.035) Urine Protein (NEG) mg/dL Urine Ketones (NEG) mg/dL Urine Occult Blood (<0.03) mg/dL Urine Urobilinogen (NEG) mg/dL Ur Leukocyte Esterase (NEG) /uL Urine RBC (0-1) /hpf Urine WBC (0-4) /hpf Ur Squamous Epith Cells (0-4) /hpf
[2020-01-23 08:16] LABS: ALT/SGPT 5 U/l (0-40); AST/SGOT 9 U/l (0-37); Albumin 2.3 gm/dL (3.2-5.2); Alkaline Phosphatase 49 U/L (39-117); Bilirubin,Direct < 0.2 mg/dL (0.0-0.3); Bilirubin,Total 0.2 mg/dL (0.0-1.0); Calcium 8.1 mg/dl (8.6-10.4); Carbon Dioxide 24 mmol/L (22-30); Glomerular Filtration Rate 119; Glucose 99 mg/dL (70-105); Lactate Dehydrogenase 116 U/L (94-250); Phosphorous 2.8 mg/dL (2.7-4.5); Triglycerides 57 mg/dl (<150); Uric Acid 1.7 mg/dL (2.5-8.0)
--- NOTE | 2020-01-23 08:17 | Internal Med Progress Note ---
Medical - PN: Subj Patient information: Note initiated : 01/23/20 at 8:12 am Service Date, if different from initiated Date: [] Patient: Herminio Rodriguez a 29 y/o F admitted on 01/21/20 for Lower Abdominal Pain, Low Back Pain, Neck Pain. Chief Complaint: [] Interval history: Ms. Rodriguez is a 29 year old F 29-year-old female presents to the ED with lower abdominal. Unable to sleep last night because of it. No previous abdominal surgeries except for tubal ligation. Reported fever last night of 103. She had normal bowel movements. She says the pain started last night and that she woke up fine yesterday. The pain is crampy in both lower quadrants and radiates around to the back. She reports hot flashes. She says she had "2 periods this month which is unusual". Patient denies any similar circumstances. CT abdomen pelvis showed large uterus and possible pelvic mass however this was not apparent on transvaginal ultrasound. Imaging did show some gastric distention but no ileus or obstruction. Surgeon evaluate the patient felt it was more likely related to PID as opposed to diverticulitis or some other abdominal pathology. Case was also discussed with Dr. Rich who came and examined the patient. Patient will be admitted for sepsis, ?suspected PID vs . Complaint of dysuria test negative 01/22 Patient did get some fluid boluses for low blood pressure last night. Good blood pressure this morning. Patient says she was able to get some sleep. She feels her abdominal pain is improving and does feel better. no Nausea vomiting. UDS shows methamphetamine. When I asked her last time she used she said over a month ago and then I said I would have had to be in sooner given the urine results and had been less than a week and she admitted to yes but denied over the past couple days. 01/23 Blood culture growing gram-positive cocci. Patient denies open wounds or recent needle use. Patient states she is feeling much better. No complaint of abdominal pain. Review of Systems: denies headache/fever/chills/nausea/vomiting/chest /cough/dyspnea/diarrhea. Ot herwise see above. - Constitutional Vitals: Vital Signs Temp Pulse Resp BP Pulse Ox 97.2 F 62 12 94/50 98 01/23/20 04:43 01/23/20 07:00 01/23/20 07:00 01/23/20 04:43 01/23/20 07:00 Period Temp Pulse Resp BP Sys/Bagley Pulse Ox Last 24 Hr 97.1 F-98.5 F 62-96 12- 85-108/46-71 95-100 Intake and Output 01/22/20 01/23/20 01/23/20 21:59 05:59 13:59 Intake Total 703 345 4620 Output Total 750 350 Balance -342 139 4128 Weight 54.703 kg Intake & Output: Intake & Output 01/22/20 01/23/20 01/23/20 21:59 05:59 13:59 Intake Total 041 181 4018 Output Total 750 350 Balance -576 182 1599 Weight 54.703 kg Intake: IV 164 704 1400 Sodium Chloride 0.9% 1,000 ml @ 1000 100 mls/hr IV .Q10H [facility] Rx#: [id number] Vibramycin 100 mg In Dextrose 5 100 % in Water 100 ml @ 100 mls/hr IV Q12H [facility] Rx#:[id number] Zosyn 3.375 gm In Dextrose 5% 50 100 in Water 50 ml @ 100 mls/hr IV Q6H [facility] Rx#:[id number] Vancomycin 1,000 mg In Sodium 250 Chloride 0.9% 250 ml @ 250 mls/ hr IV Q12H [facility] Rx#:[id number] Oral 500 50 Output: Void Amount 750 350 # of times incontinent of urine 0 Other: Meal Dinner Urine Appearance Cloudy Clear Urine Color Pale Straw Urine Odor Normal Normal # Voids 0 # Bowel Movements 1 0 Exam: General: Alert, Awake, No acute Distress Eyes/N/T: EOMI, , Head/Neck: neck supple, CV: mildly Tachycardia but regular, No murmurs, Pulm: Clear b/l, no wheezing/rhonchi/rales Abd: soft, +BS x4 Ext: no clubbing/cyanosis/edema Neuro: Alert, no focal deficits, moves all extremities, Skin: warm/dry Medical - PN: Obj Da - Labs CBC & Chem 7: 01/23/20 05:40 01/23/20 05:40 Labs: Abnormal Lab Results 01/23/20 01/22/20 01/22/20 05:40 07:50 05:30 WBC RBC 3.02 L Hgb 8.7 L Hct 26.7 L POC Hct MPV 10.6 H Gran % Lymph % (Auto) Gran # Lymph # (Auto) Seg Neutrophils % Lymphocytes % Glucose 124 H POC Glucose Uric Acid 2.2 L Calcium 7.3 L Phosphorus 2.4 L Magnesium 1.5 L Total Protein 5.0 L Albumin 2.5 L Ur Specific [place] 1.047 H Urine Protein 30 A Urine Ketones 5/tr A Urine Occult Blood 0.03 A Urine Urobilinogen 2.0 A Ur Leukocyte Esterase 500 A Urine RBC 52 H Urine WBC 81 H Ur Squamous Epith Cells 15 H Ur Amphetamines Screen 01/22/20 01/21/20 01/21/20 05:30 16:20 16:20 WBC 16.9 H RBC 3.30 L Hgb 9.5 L Hct 29.4 L POC Hct MPV Gran % Lymph % (Auto) Gran # Lymph # (Auto) Seg Neutrophils % 83 H Lymphocytes % 11 L Glucose POC Glucose Uric Acid Calcium Phosphorus Magnesium Total Protein Albumin Ur Specific [place] 1.054 H Urine Protein Urine Ketones Urine Occult Blood Urine Urobilinogen 2.0 A Ur Leukocyte Esterase 500 A Urine RBC 11 H Urine WBC 111 H Ur Squamous Epith Cells 18 H Ur Amphetamines Screen Suspect positive A 01/21/20 01/21/20 01/21/20 13:36 13:36 13:26 WBC 24.1 H RBC Hgb Hct 33.8 L POC Hct 34.0 L MPV 10.5 H Gran % 90.3 H Lymph % (Auto) 6.0 L Gran # 21.75 H Lymph # (Auto) 1.45 L Seg Neutrophils % 88 H Lymphocytes % 10 L Glucose 165 H POC Glucose 167 H Uric Acid Calcium Phosphorus Magnesium Total Protein Albumin Ur Specific [place] Urine Protein Urine Ketones Urine Occult Blood Urine Urobilinogen Ur Leukocyte Esterase Urine RBC Urine WBC Ur Squamous Epith Cells Ur Amphetamines Screen Meds: Medications Acetaminophen (Tylenol) 650 mg PO Q6HP PRN PRN Reason: PAIN/FEVER > 101 Docusate Sodium (Colace) 100 mg PO BID [facility] Last Admin: 01/22/20 21:02 Dose: Not Given Documented by: Enoxaparin Sodium (Lovenox) 40 mg SQ DAILY [facility] Last Admin: 01/22/20 09:59 Dose: 40 mg Documented by: Potassium Chloride 40 meq/ (Dextrose) 520 mls @ 130 mls/hr IV UD PRN PRN Reason: Potassium < 3 Magnesium Sulfate (Magnesium Sulfate) 2 gm in 50 mls @ 50 mls/hr IV UD PRN PRN Reason: Magnesium </= 1.6 Piperacillin Sod/Tazobactam (Sod 3.375 gm/ Dextrose) 50 mls @ 100 mls/hr IV Q6H [facility]; Protocol Last Infusion: 01/23/20 05:35 Dose: Infused Documented by: Vancomycin HCl 1,000 mg/ (Sodium Chloride) 250 mls @ 250 mls/hr IV Q12H [facility] Last Infusion: 01/22/20 23:30 Dose: Infused Documented by: Morphine Sulfate (Morphine) 0 mg IV Q3HP PRN PRN Reason: Pain Last Admin: 01/23/20 04:37 Dose: 1 mg Documented by: Ondansetron HCl (Zofran) 4 mg IV Q4HP PRN PRN Reason: Nausea And Vomiting Polyethylene Glycol (Miralax) 17 gm PO DAILYP PRN PRN Reason: Constipation Potassium Chloride (Kdur) 40 meq PO UD PRN PRN Reason: Potssium is 3-3.5 Potassium Chloride (Kdur) 40 meq PO UD PRN PRN Reason: Potassium < 3 Senna (Senokot) 2 tab PO DAILYP PRN PRN Reason: Constipation Sodium Chloride (Saline Flush) 10 ml IV Q8 [facility] Last Admin: 01/23/20 05:43 Dose: Not Given Documented by: Vancomycin HCl (Vancomycin Per Pharmacy) 1 order IV UD [facility]; Protocol Medical - PN: A/P - Time Spent With Patient Total time spent is greater than 50% in coordination of care (as documented) at patient's floor/unit and/or counseling patient: - Narrative A/P Narrative: A: *b/l Lower abdominal pain: ?cystitis vs ?drug related. Improved -CT no obvious source, distended stomach no bowel obstruction. vaginal u/s unremarkable *Sepsis w/hypotension responsive to IVF's: 2/2 bacteremia -lactate ok, leukocytosis resolved *Bacteremia(GPC): *UTI: *Electrolyte imbalance: Hypocalcemia/hypophosphatemia/hypomagnesemia -improved *Tobacco abuse: *Substance abuse: admitted to use now, but denied on admission -UDS with amphetamine P: -zosyn/Vanco -pending BC -pain control -echo pending -electrolytet replacement -Smoking/methamphetamine cessation counseling -ppx: [facility]en[facility] Medical - PN: Qual - VTE Deep Vein Thrombosis/Pulmonary Embolism Present on Admission: No
[2020-01-23 08:19] LABS: Albumin/Globulin Ratio 0.9 (1.0-2.3); Blood Urea Nitrogen 3 mg/dl (6-20); Chloride 109 mmol/L (96-108); Globulin 2.6 gm/dL (2.2-3.7)
[2020-01-23] MEDS: DOCUSATE SODIUM 100 MG CAPSULE PO SCH (08:43)
[2020-01-23] MEDS: ENOXAPARIN 40 MG/0.4 ML SYRINGE SQ SCH (08:43)
[2020-01-23] MEDS: VANCOMYCIN 1,000 MG in 0.9 % SODIUM CHLORIDE 250 ML IV SCH (08:44)
[2020-01-23] MEDS ORDERED: AZITHROMYCIN 250 MG TABLET PO ONE (19:20)
--- NOTE | 2020-01-23 20:02 | Discharge Summary ---
Medical - DS: Prov Patient information: Note initiated : 01/23/20 at 8:00 pm Service Date, if different from initiated Date: [] Patient: Herminio Rodriguez 29 y/o F admitted on 01/21/20 for Lower Abdominal Pain, Low Back Pain, Neck Pain. Chief Complaint: [] Date of admission: 01/21/20 23:32 Discharge date: 01/23/20 Primary care physician: Scott Garcia Consults: 01/21/20 Consult to Physician [CONS] Stat Comment: Consulting Provider: Lydia Rich Reason For Exam: Physician to Consult Consult to Physician [CONS] Stat Comment: Consulting Provider: Stephen Lange Reason For Exam: Physician to Consult 01/21/20 21:51 Consult to Physician [CONS] Stat Comment: Consulting Provider: Conrado Novak Reason For Exam: Physician to Consult 01/23/20 13:01 Consult to Physician [CONS] Routine Comment: bactermia Consulting Provider: Berhane Matthews Reason For Exam: Physician to Consult Medical - DS: Meds - Discharge Medications Active and Home Medications: Home Medications Fluticasone Propionate [Flonase] 2 spray NS DAILY #1 spray.tomás 10/17/15 [Rx Confirmed 01/21/20 Last Taken Unknown] Medical - DS: Hosp Hospital Course: Ms. Rodriguez is a 29 year old F 29-year-old female presents to the ED with lower abdominal. Unable to sleep last night because of it. No previous abdominal surgeries except for tubal ligation. Reported fever last night of 103. She had normal bowel movements. She says the pain started last night and that she woke up fine yesterday. The pain is crampy in both lower quadrants and radiates around to the back. She reports hot flashes. She says she had "2 periods this month which is unusual". Patient denies any similar circumstances. CT abdomen pelvis showed large uterus and possible pelvic mass however this was not apparent on transvaginal ultrasound. Imaging did show some gastric distention but no ileus or obstruction. Surgeon evaluate the patient felt it was more likely related to PID as opposed to diverticulitis or some other abdominal pathology. Case was also discussed with Dr. Rich who came and examined the patient. Patient will be admitted for sepsis, ?suspected PID vs . Complaint of dysuria test negative 01/22 Patient did get some fluid boluses for low blood pressure last night. Good blood pressure this morning. Patient says she was able to get some sleep. She feels her abdominal pain is improving and does feel better. no Nausea vomiting. UDS shows methamphetamine. When I asked her last time she used she said over a month ago and then I said I would have had to be in sooner given the urine results and had been less than a week and she admitted to yes but denied over the past couple days. 01/23 Blood culture growing gram-positive cocci. Patient denies open wounds or recent needle use. Patient states she is feeling much better. No complaint of abdominal pain. blood cultures growing micrococcus luteus in both bottles. Studies from cervix showing Neisseria gonorrhea. Echo with no vegetations or any other notable findings. [She did report multiple tattoos over the past month and has been feeling ill for that period of time. Suspect that was likely the source of entry] Patient reported to nurse that she wanted to leave [facility]. I went had a discussion with the patient regarding her diagnosis and the seriousness of her condition. Discussed with her bacteremia and the risks of losing limb or life. And that she was not medically cleared from my standpoint that she needed to remain in the hospital. She understood this risk and still decided to leave [facility] at 1954. A: *b/l Lower abdominal pain: ?cystitis vs ?drug related. Improved -CT no obvious source, distended stomach no bowel obstruction. vaginal u/s unremarkable *Sepsis w/hypotension responsive to IVF's: 01/02 bacteremia -lactate ok, leukocytosis resolved *Bacteremia(GPC): *UTI: *Electrolyte imbalance: Hypocalcemia/hypophosphatemia/hypomagnesemia -improved *Tobacco abuse: *Substance abuse: admitted to use now, but denied on admission -UDS with amphetamine Discharge diagnosis: Micrococcus bacteremia sepsis UTI tobacco abuse substance abuse - Time Spent with Patient Total time spent providing and/or coordinating discharge services: Medical - DS: Exam - Constitutional Vitals: Vital Signs Temp Pulse Pulse Resp BP Pulse Ox 01/23/20 19:31 92 H 100 01/23/20 19:26 99.4 F H 87 20 107/66 100 01/23/20 18:45 100 01/23/20 16:08 81 112/62 99 01/23/20 16:03 97.4 F 87 16 112/62 100 01/23/20 12:01 76 107/66 100 01/23/20 12:00 100 01/23/20 08:00 97.1 F 59 L 97/65 99 01/23/20 07:00 62 12 98 01/23/20 06:00 12 97 01/23/20 04:43 97.2 F 62 14 94/50 98 01/23/20 04:42 84 17 87/47 99 01/23/20 04:05 69 13 89/52 98 01/23/20 04:04 73 17 94/53 98 01/23/20 04:02 68 13 89/49 98 01/23/20 04:01 65 13 85/53 98 01/23/20 00:10 70 98 01/23/20 00:05 97.1 F 66 13 102/50 99 01/22/20 21:01 86 13 96/59 97 01/22/20 20:59 80 15 103/61 97 01/22/20 20:36 84 95 01/22/20 20:31 81 16 92/49 96 01/22/20 20:01 98.3 F 86 18 100/52 100 Intake and Output 01/23/20 01/23/20 01/23/20 05:59 13:59 21:59 Intake Total 500 1780 120 Output Total 350 850 400 Balance 150 930 -280 Intake: IV 450 1300 Sodium Chloride 0.9% 1,000 ml @ 1000 100 mls/hr IV .Q10H [facility] Rx#: [id number] Vibramycin 100 mg In Dextrose 5 100 % in Water 100 ml @ 100 mls/hr IV Q12H [facility] Rx#:[id number] Zosyn 3.375 gm In Dextrose 5% 100 50 in Water 50 ml @ 100 mls/hr IV Q6H [facility] Rx#:[id number] Vancomycin 1,000 mg In Sodium 250 250 Chloride 0.9% 250 ml @ 250 mls/ hr IV Q12H [facility] Rx#:[id number] Oral 50 480 120 Output: Void Amount 350 Urine/Stool Mix 850 400 Other: Meal Lunch Percent of Meal Consumed 100% Feeding Ability Independent Urine Appearance Clear Cloudy Sediment Urine Color Straw Dark Yellow Urine Odor Normal Strong Stool Color Yellow Stool Consistency Liquid # Bowel Movements 0 Medical - DS: Data Labs on day of discharge: Labs from last 24 hours 01/23/20 01/23/20 05:40 05:40 WBC 7.4 RBC 3.02 L Hgb 8.7 L Hct 26.7 L MCV 88.4 MCH 28.8 MCHC 32.6 RDW 13.2 Plt Count 249 MPV 10.6 H Gran % 56.6 Lymph % (Auto) 32.7 [place] % (Auto) 7.7 Eos % (Auto) 2.7 Baso % (Auto) 0.3 Gran # 4.19 Lymph # (Auto) 2.42 [place] # (Auto) 0.57 Eos # (Auto) 0.20 Baso # (Auto) 0.02 Sodium 141 Potassium 3.6 Chloride 109 H Carbon Dioxide 24 Anion Gap 8.0 BUN 3 L Creatinine 0.7 GFR Calculation 119 Glucose 99 Uric Acid 1.7 L Calcium 8.1 L Phosphorus 2.8 Magnesium 1.9 Total Bilirubin 0.2 Direct Bilirubin < 0.2 GGT 8 AST 9 ALT 5 Alkaline Phosphatase 49 Lactate Dehydrogenase 116 Total Protein 4.9 L Albumin 2.3 L Globulin 2.6 Albumin/Globulin Ratio 0.9 L Triglycerides 57 Preliminary micro results at discharge 01/21/20 14:38 Blood Culture - Preliminary Blood 01/21/20 14:51 Blood Culture - Preliminary Blood Gram positive cocci Medical - DS: A/P - Patient/Caregiver Discharge Instructions Diet: Regular Diet - Follow up Plan Follow up with: Lydia Rich MD [Physician] - Scott Garcia MD [Primary Care Provider] - Stephen Lange MD [Physician] - Disposition: Left Against Medical Advice Prognosis: Serious Rehab Potential: Undetermined Medical - DS: Qual - VTE Deep Vein Thrombosis/Pulmonary Embolism Present on Admission: No
--- NOTE | 2020-01-24 07:39 | Consultation ---
DATE OF CONSULTATION: 01/21/2020 HISTORY OF PRESENT ILLNESS: A 29-year-old white female 3, para 3 who just completed a menstrual period who presented to [facility] with complaints of sudden abdominal pain which woke her from sleep last evening. She states the pain would come and go and continued to wake her from sleep. She did not vomit, though stated she wanted to vomit because of the pain. She states she had a normal bowel movement this morning. She denies any unusual vaginal discharge. She has previously had a tubal ligation. She has been with her same partner for over 6 years, which is her . She was treated for chlamydia early on in their marriage, about 6 years ago. She has had three babies born vaginally. The youngest is 4 years old. During the course of evaluation in the emergency room, she was found to have a very distended stomach on the basis of abdominal x-ray and CT scan and general surgery consultation was requested. It was his opinion that this represented a reaction to PID. Additionally, her labs were remarkable for a white blood cell count of 24,000. She is afebrile and denies fever, though she says she felt hot flashes today. She does describe the pain is somewhat similar to labor-like pains which radiate from the front to the back. Her pelvic CT scan suggested an enlarged uterus. Her pelvic ultrasound was reportedly negative and no free fluid was seen. PAST MEDICAL HISTORY: She reports no medications and generally negative medical history. PAST SURGICAL HISTORY: Her only surgical procedure was her tubal ligation. SOCIAL HISTORY: She is a 1 pack per day smoker. She is . She occasionally uses marijuana, but denies other recreational drugs. PHYSICAL EXAMINATION: She is a slender female who appears drowsy, likely related to the Dilaudid she has received. She has an NG in place and states this helped a small amount initially but is no longer keeping her comfortable. HEENT: Remarkable for poor dentition. LUNGS: Clear. HEART: Tachycardic. ABDOMEN: She has positive bowel sounds. She is most tender in the lower quadrants. Abdomen is soft. There are normal sounding bowel tones present. Pelvic exam was not repeated-per Dr. Fajardo, there was some white abundant discharge with no cervical motion tenderness and otherwise unremarkable pelvic exam. ASSESSMENT AND PLAN: Sudden onset of abdominal pain and markedly distended stomach of unclear etiology, leukocytosis; hypotension and tachycardia are of concern and suggestive for sepsis, working diagnosis of PID, though not certain this is the case, but I agree with treating with IV antibiotics, certainly admission to the hospitalist service, and continued evaluation and observation. She has already been given ciprofloxacin and Flagyl, but I have recommended adding Rocephin and for the correction would add doxycycline 100 mg b.i.d. SAB:brandin Job ID: [id number] Doc ID: [id number] Lydia Rich MD
== END 2020-01-23 19:55 | disposition left against medical advice (07) | DRG 872 ==
LOC: ED 13:09 → ICU 23:30
PROVIDERS: ADMIT Internal Medicine; ATTEND Internal Medicine